=== PATIENT | male | born 1980 | race Two or more races ===

== ENCOUNTER 2019-05-18 18:39 | Emergency (ER) | payer SELFPAY ==
[~2019-05-18] VITALS: Ht 177.8 cm; Wt 92.5 kg
[2019-05-18 18:53] VITALS: BP 155/99
== END 2019-05-18 20:15 | disposition home or self-care (01) ==
LOC: ER 18:41
DX: K12.2 Cellulitis and abscess of mouth (principal); K13.79 Other lesions of oral mucosa; B95.0 Streptococcus, group A, as the cause of diseases classified elsewhere
CPT/HCPCS: 86403-TC; 87070-TC